=== PATIENT | male | born 1955 | race Caucasian/White ===

== ENCOUNTER 2020-08-01 10:00 | Outpatient (RCR) | payer OTHER, SELFPAY | END 2020-09-09 08:46 | disposition home or self-care (01) | LOC: HO.PTCHIC 10:00 | PROVIDERS: PCP Internal Medicine; Visit Provider Orthopaedic Surgery | DX: M75.21 Bicipital tendinitis, right shoulder (principal); M75.22 Bicipital tendinitis, left shoulder; M75.41 Impingement syndrome of right shoulder; M75.42 Impingement syndrome of left shoulder | CPT/HCPCS: 97110; 97140; 97161 ==

== ENCOUNTER 2024-02-22 12:36 | Outpatient (REF) | payer OTHER, SELFPAY ==
--- NOTE | ~2024-02-22 | XR_ITS ---
EXAMINATION: XR SHOULDER, LEFT CLINICAL INFORMATION: Chronic left shoulder pain COMPARISON: None available. TECHNIQUE: AP external rotation, Grashey, scapular Y, and axillary views of the left shoulder. FINDINGS: There is an oval shaped focus of calcification measuring 8 mm transverse in the subcarinal space adjacent to the greater tuberosity. The bones and soft tissues are normal. No fracture. Glenohumeral and acromioclavicular alignment is anatomic with normal joint space. XR/XR shoulder LT min 2V IMPRESSION: Calcification adjacent to the greater tuberosity compatible with calcific tendinosis/tendinitis. Electronically signed by: Zaheer Alamo MD 03/20/2024 01:20 PM EDT RP
== END 2024-02-22 12:37 | disposition home or self-care (01) ==
LOC: HO.HMGCX 12:36
PROVIDERS: PCP Internal Medicine; Visit Provider Internal Medicine
DX: M25.512 Pain in left shoulder (principal); G89.29 Other chronic pain
CPT/HCPCS: 73030

== ENCOUNTER 2024-05-05 10:22 | Outpatient (AMB) | payer OTHER, SELFPAY ==
--- NOTE | 2024-05-05 08:35 | A.OFFVIS_ITS ---
Intake Visit Reasons: Former Smoker HPI HPI Former Smoker: Details: Initial visit for this 68yo smoker with a 45PYH. Patient started smoking at age 17yo for 48 years at 1ppd. Quit 3 years ago in 2020. . Denies marijuana use. Social second hand smoke exposure. Denies exposure to chemicals or substances like asbestos. . Reports family history of lung cancer. Mother at 59yo. Denies personal history of cancers. Denies chest CT in last year. . Recent travel outside the [place]. [place] last year. Reports history of Tuberculosis at age 15 - did medication x 6 months with resolution. Denies recent respiratory illness or recent hospitalization for respiratory iss ues. Denies testing positive for COVID. Admits receiving COVID Vaccine. x 2. . Denies fever, chills, new/worsening cough, hemoptysis, hoarseness or dysphagia. Denies significant chest pain, significant dyspnea or unintentional weight loss. Patient Lung Cancer Screening Questionnaire reviewed with patient by provider. . Shared Decision Making Completed. Patient meets criteria. Discussed in detail with patient, the risk vs benefit of LDCT screening. Patient consents to proceed with scan. Discussed smoking cessation. FOR[facility]LY [facility], [facility] Medical History (Updated 05/05/24 @ 10:45 by Chela Moreno PA-C) History of tuberculosis Personal history of nicotine dependence Chronic anticoagulation Atrial fibrillation Hypertension Hyperlipidemia Surgical History (Updated 05/05/24 @ 10:43 by Chela Moreno PA-C) History of right knee surgery History of shoulder surgery Family History (Updated 05/05/24 @ 10:43 by Chela Moreno PA-C) Mother Lung cancer Social History (Updated 05/05/24 @ 10:44 by Chela Moreno PA-C) Alcohol intake: current Alcohol intake frequency: holidays/special occasions only Patient Tobacco Use Status: Former Tobacco user Years Smoked: (onset 17yo, 1ppd x 48yrs, 45pyh - quit 2020) Assessment & Plan Assessment & Plan (1) Personal history of nicotine dependence: Comment: (onset 17yo, 1ppd x 48yrs, 45pyh - quit 2020) Code(s): Z87.891 - Personal history of nicotine dependence Category: Medical Plan: - SDM visit completed today in office. - Patient meets criteria for LDCT for lung cancer screening purposes and is asymptomatic. - Smoking cessation counseling offered. Patients can always call [phone]. - Will arrange for a LDCT scan of the chest for screening purposes at [facility]. - Risks, benefits, and alternatives were discussed in detail and the patient agrees to proceed. - Risks discussed include but are not limited to: radiation exposure, anxiety during testing and while awaiting results, false negatives, false positives and possibility of additional intervention such as further imaging or surgical procedures for benign disease. - Benefits are obviously detection of lung cancer at an early stage which can lead to improved outcomes. - Discussed the importance of screening program compliance with adherence to yearly LDCT scan as scheduled - or sooner interval scans for personalized screening regimen. - Discussed follow up plan. Our office will send a letter discussing results and if needed set up phone call and office visit based on CT findings. - Patient educated on results categorization and the management decisions for suspicious findings potentially found on the screening LDCT scan. Any patient with a Lung RADS score of 3 or 4 will be reviewed by a multidisciplinary team at [facility] to form a plan of action in regards to scan findings. - If further work up is warranted for a suspicious lung finding this will be followed by the Lung Cancer Screening program in conjunction with the Thoracic Surgery Department at [facility]. - A copy of the office note and LDCT will be sent to the patient's PCP - as well as documentation on any associated further plans of care. - Incidental findings on LDCT are the PCP's responsibility. These findings are indicated with an S finding on the LDCT Assessment. A note discussing the findings will be sent to the PCP who is then responsible for further management. - All questions answered.? Coding Level of Care Code Lung Cancer Screening G0296 Diagnoses Personal history of nicotine dependence Z87.891
== END 2024-05-05 10:33 | disposition home or self-care (01) ==
PROVIDERS: PCP Internal Medicine; Visit Provider Physician Assistant Medical
DX: Z87.891 Personal history of nicotine dependence (principal)
CPT/HCPCS: G0296

== ENCOUNTER 2024-05-05 10:45 | Outpatient (REF) | payer OTHER, SELFPAY ==
--- NOTE | ~2024-05-05 | CT_ITS ---
EXAMINATION: CT LOW-DOSE SCREENING CHEST WITHOUT CONTRAST CLINICAL INFORMATION: Personal history of nicotine dependence. The patient has a 48 pack-year history of smoking, having quit 3 years ago. COMPARISON: None available. TECHNIQUE: Multidetector volumetric CT imaging of the chest is performed on a Siemens SOMATOM Definition scanner without contrast using low dose technique. Additional 2D coronal and sagittal reformatted images and axial 3D maximum intensity projection (MIP) images are generated on the CT workstation. This CT examination was performed using dose optimization techniques as appropriate, variously including the following: *Automated exposure control *Adjustment of mA and/or kV according to patient size (this includes techniques or standardized protocols for targeted exams where dose is matched to indication/reason for exam; i.e. extremities or head) *Use of iterative reconstruction technique TOTAL EXAM DLP: 58 mGy-cm. CTDIvol: 1.56 mGy. FINDINGS: PULMONARY NODULES: No suspicious pulmonary nodules. LUNGS: Lungs bilaterally symmetrically expanded. Multiple coarse calcifications are present in the left upper lobe, some tubular. There is associated bronchiectasis. There is emphysema present along with bronchial thickening. No effusion or pneumothorax. Central airways patent. MEDIASTINUM: No mediastinal, hilar or axillary adenopathy or free fluid collection. CORONARY ARTERY CALCIFICATION: Marked. THYROID GLAND: Unremarkable to the extent seen. CARDIOVASCULAR STRUCTURES: Aortic and heart size normal. No pericardial effusion. CHEST WALL/AXILLA: Unremarkable. UPPER ABDOMEN: Included portions of the solid organs in the upper abdomen unremarkable on noncontrast imaging. OSSEOUS STRUCTURES: No suspicious focal findings. CT/CT lung screening IMPRESSION: 1. No evidence of pulmonary malignancy. 2. Emphysema and bronchiectasis. Marked coronary calcium. 3. Calcifications in the left upper lobe with associated bronchiectasis, possibly the residua of prior infection. ASSESSMENT: 1. Lung-RADS Category 1: Negative. There are no nodules or there are definitely benign nodules. N/A 2. Lung-RADS Category S: Negative. There are no clinically significant or potentially clinically significant findings not related to the lungs requiring urgent additional evaluation. RECOMMENDATION: Continued routine annual low-dose CT lung screening in 1 year is recommended. An order for CT CHEST LOW DOSE CANCER SCREENING ([id number]) can be placed. Electronically signed by: Cristian Stapleton MD 06/22/2024 02:31 PM EST RP
== END 2024-05-05 10:46 | disposition home or self-care (01) ==
LOC: HO.CT 10:45
PROVIDERS: PCP Internal Medicine; Visit Provider Physician Assistant Medical
DX: Z12.2 Encounter for screening for malignant neoplasm of respiratory organs (principal); Z87.891 Personal history of nicotine dependence
CPT/HCPCS: 71271; G0296